=== PATIENT | female | born 1955 | race Caucasian/White ===

== ENCOUNTER 2017-04-29 09:20 | Emergency (ER) | payer OTHER ==
[2017-04-29 09:59] VITALS: BP 150/89; PULSE 69; TEMP 97.8; BMI 27.9
--- NOTE | 2017-04-29 11:13 | PDOC ---
History of Present Illness - General Chief Complaint: Revisit, Lab Variance Stated Complaint: EXPOSURE Time Seen by Provider: 04/29/17 10:29 History Source: Patient Exam Limitations: No Limitations - History of Present Illness Initial Comments: 04/29/17 11:09 Here for Hepatitis vaccine, was exposed at [facility] on April 25. Denies any symptoms, no abdominal pain, no nausea vomiting or diarrhea. Severity: moderate Associated Symptoms: reports: denies symptoms Past History - Past Medical History Allergies/Adverse Reactions: Allergies Allergy/AdvReac Type Severity Reaction Status Date / Time No Known Allergies Allergy Verified 12/18/13 16:05 Home Medications: Ambulatory Orders Folic Acid - 1 mg PO DAILY 04/06/13 Valsartan/Hydrochlorothiazide [Diovan Hct 320-12.5 mg Tab] 1 cap PO DAILY Ca Cmb No.1/Vit D3/B-6/FA/B12 [Vitamin D3 1,000 Unit Tablet] 5,000 each PO WEEKLY 12/18/13 Levothyroxine [Synthroid -] 150 mcg PO DAILY 12/18/13 Tamoxifen Citrate 20 mg PO DAILY 12/18/13 Zolpidem Tartrate [Ambien] 10 mg PO HS 12/18/13 Cephalexin [Keflex] 500 mg PO QID #28 capsule 12/21/13 Oxycodone HCl/Acetaminophen [Percocet 5-325 mg Tablet -] 1 - 2 tab PO Q4H PRN # 40 tablet 12/21/13 Folic Acid 1 mg PO DAILY 04/26/15 Levothyroxine [Synthroid -] 150 mcg PO DAILY 04/26/15 Tamoxifen Citrate 20 mg PO DAILY 04/26/15 Tocilizumab [Actemra] 80 mg IV MONTHLY 04/26/15 Valsartan/Hydrochlorothiazide [Valsartan-Hctz 320-12.5 mg Tab] 1 each PO DAILY 04/26/15 Zolpidem Tartrate 10 mg PO DAILY 04/26/15 Liraglutide [Victoza -] 0.6 mg SQ DAILY@0700 04/29/15 Anemia: No Asthma: No Cancer: Yes (RIGHT BREAST) Cardiac Disorders: No CVA: No COPD: No CHF: No Dementia: No Diabetes: No GI Disorders: Yes (DIVERTICULOSIS; GASTRITIS; HIATAL HERNIA;H.PYLORI) Disorders: No HTN: Yes Hypercholesterolemia: No Liver Disease: No Seizures: No Thyroid Disease: Yes (HYPOTHYROID) - Surgical History Abdominal Surgery: No Appendectomy: No Cardiac Surgery: No Cholecystectomy: No Lung Surgery: No Neurologic Surgery: No Orthopedic Surgery: Yes (foot sx, fracture) - Immunization History Immunization Up to Date: Yes - Suicide/Smoking/Psychosocial Hx Smoking History: Never smoked Have you smoked in the past 12 months: No Number of Cigarettes Smoked Daily: 20 If you are a former smoker, when did you quit?: 2004 Hx Alcohol Use: No Drug/Substance Use Hx: No Substance Use Type: None, Alcohol Hx Substance Use Treatment: No Review of Systems - Review of Systems Constitutional: No: Symptoms Reported HEENTM: No: Symptoms Reported Respiratory: No: Symptoms reported Cardiac (ROS): No: Symptoms Reported ABD/GI: No: Symptoms Reported : No: Symptoms Reported Musculoskeletal: No: Symptoms Reported Integumentary: No: Symptoms Reported Neurological: No: Symptoms reported All Other Systems: Reviewed and Negative *Physical Exam - Vital Signs Last Vital Signs Temp Pulse Resp BP Pulse Ox 97.8 F 69 20 150/89 99 04/29/17 09:49 04/29/17 09:49 04/29/17 09:49 04/29/17 09:49 04/29/17 09:49 - Physical Exam General Appearance: Yes: Appropriately Dressed. No: Apparent Distress Respiratory/Chest: positive: Lungs Clear, Normal Breath Sounds Cardiovascular: positive: Regular Rhythm, Regular Rate Gastrointestinal/Abdominal: positive: Normal Bowel Sounds, Soft. negative: Tender, Distended, Guarding, Rebound, Tenderness Lymphatic: negative: Adenopathy Musculoskeletal: positive: Normal Inspection Integumentary: positive: Normal Color, Dry Neurologic: positive: Alert, Normal Mood/Affect Medical Decision Making - Medical Decision Making 04/29/17 11:42 A/P: Patient here for hepatitis vaccination as requested from [facility]. I have called our pharmacy who states we do not have hepatitis A vaccines available. As per [facility] patient can follow up at [facility] , set up at the [facility] for vaccination, there are 3 days available to obtain the vaccination April 29, , and information to make an appointment given to patient, she verbalized understanding. Patient was satisfied with the direction given to her to obtain her vaccination *DC/Admit/Observation/Transfer Diagnosis at time of Disposition: Exposure to hepatitis A - Discharge Dispostion Disposition: HOME Condition at time of disposition: Good Admit: No - Referrals Referrals: Moy Casanova MD [Primary Care Provider] - - Patient Instructions Additional Instructions: Please follow up with [facility] , you may call [phone] if unable to register with [email or web address] You need vaccine within two week window from April 25.
== END 2017-04-29 11:15 | disposition home or self-care (01) ==
LOC: JERFT 09:20
DX: Z20.5 Contact with and (suspected) exposure to viral hepatitis (principal)
CPT/HCPCS: 99281-25